=== PATIENT | female | born 1975 | race Caucasian/White ===

== ENCOUNTER → 2020-03-11 10:08 | Outpatient (BNVA) | payer OTHER, SELFPAY | PROVIDERS: PCP Family Medicine; Visit Provider Internal Medicine | DX: M25.522 Pain in left elbow (principal) | CPT/HCPCS: 73080; 99203 ==

== ENCOUNTER 2020-04-04 09:55 | Outpatient (REF) | payer OTHER, SELFPAY ==
[2020-04-04 12:00] LABS: Thyroid Stimulating Hormone 0.75 uIU/mL (0.32-4.0)
[2020-04-05 07:02] LABS: Lutenizing Hormone 16.8 mIU/mL
== END 2020-04-04 09:56 | disposition home or self-care (01) ==
LOC: HO.LAB 09:55
PROVIDERS: PCP Family Medicine; Visit Provider Family Medicine
DX: N95.1 Menopausal and female climacteric states (principal); N89.8 Other specified noninflammatory disorders of vagina
CPT/HCPCS: 36415; 83001; 83002; 84443

== ENCOUNTER 2020-06-02 15:34 | Outpatient (REF) | payer OTHER, SELFPAY ==
--- NOTE | ~2020-06-02 | MM_ITS ---
EXAMINATION: MM SCREENING DIGITAL BREAST TOMOSYNTHESIS, BILATERAL CLINICAL INFORMATION: Screening. Asymptomatic. The lifetime risk of breast cancer based on the Tyrer-Cuzick Model is 8%. COMPARISON: Mammography: 04/25/2019, 04/19/2018 (baseline). TECHNIQUE: Digital breast tomosynthesis is performed in both the craniocaudal and mediolateral oblique views along with computer-aided detection (CAD). Synthesized 2D images are generated from the tomosynthesis. FINDINGS: The breasts are heterogeneously dense, which may obscure small masses (ACR BI-RADS breast composition Category c). There are no significant masses, abnormal calcifications, or other abnormalities. The axilla and skin contours are unremarkable. No significant changes. MM/MM tomosynthesis screening BI IMPRESSION: No mammographic evidence of malignancy. ASSESSMENT: BI-RADS 1: Negative RECOMMENDATION: Routine annual mammography screening. This patient's information was entered into a reminder system with a target due date for their next mammogram.
== END 2020-06-02 15:35 | disposition home or self-care (01) ==
LOC: HO.MAMMO 15:34
PROVIDERS: PCP Family Medicine; Visit Provider Family Medicine
DX: Z12.31 Encounter for screening mammogram for malignant neoplasm of breast (principal)
CPT/HCPCS: 77063; 77067

== ENCOUNTER 2021-01-01 07:19 | Inpatient (IN) | payer OTHER, SELFPAY ==
--- NOTE | ~2021-01-01 | MR_ITS ---
EXAMINATION: MR ABDOMEN WITHOUT CONTRAST CLINICAL INFORMATION: Elevated liver function tests. Abdominal pain. Dilated bile ducts on outside CT scan. COMPARISON: Previous abdominal ultrasound from earlier the same day and MRI of the abdomen October 2016. TECHNIQUE: MR abdomen is performed without gadolinium contrast. MRCP sequences were also performed. FINDINGS: LUNG BASES: The visualized lung bases are unremarkable. LIVER, GALLBLADDER, AND BILIARY TREE: The liver is normal in size, shape and attenuation. There are innumerable small liver cysts. Findings are suggestive of biliary hamartomas or von Meyenburg complex cyst. This is similar to previous exam from October 2016. There is no intrahepatic or extrahepatic biliary duct dilatation. The common bile duct measures 0.7 to 0.8 cm. No filling defect or stricture in the common bile duct is seen. The gallbladder has been removed. PANCREAS: Unremarkable. SPLEEN: Unremarkable. ADRENAL GLANDS: There are bilateral adrenal lesions, left greater than right. These measure 1.3 cm on the right and 1.8 x 2.6 cm on the left. These signal on out of phase sequences suggestive of fatty lesions. These are similar to previous exam and likely represent benign lipid rich adenomas. KIDNEYS AND URETERS: The kidneys are normal in size and shape. No hydronephrosis. No perinephric stranding. GASTROINTESTINAL TRACT: No bowel obstruction. No ascites or fluid collection. ABDOMINAL WALL: No significant hernia is appreciated. LYMPH NODES: No lymphadenopathy. VASCULAR: Unremarkable. OSSEOUS STRUCTURES: Marrow signal normal. 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 Normal caliber intrahepatic and extrahepatic bile ducts. No biliary duct dilatation seen. Stable adrenal adenomas.
--- NOTE | ~2021-01-01 | US_ITS ---
EXAMINATION: US ABDOMEN LIMITED WITH DOPPLER CLINICAL INFORMATION: Acute hepatitis with right upper quadrant pain.. COMPARISON: MRCP dated 01/01/2021 TECHNIQUE: Real-time imaging of the right upper quadrant abdominal viscera. Color Doppler interrogation of the portal veins, hepatic arteries, hepatic veins and IVC, with spectral analysis. FINDINGS: NONVASCULAR PANCREAS: Normal. LIVER: Normal. The liver is normal in size. The liver contour is normal. Parenchymal echogenicity is normal. Multiple simple hepatic cysts present, largest measuring 9 mm within the right lobe, benign. Stable minimal prominence of the left intrahepatic biliary tree, nonspecific status post cholecystectomy. GALLBLADDER: Surgically absent. COMMON BILE DUCT: Normal caliber status post cholecystectomy measuring up to 6.7 mm. RIGHT KIDNEY: Normal. No hydronephrosis. No renal calculi or focal parenchymal lesions. The kidney measures 10.9 cm in maximum dimension. FREE FLUID: None. VASCULAR: Patent portal vein with hepatopedal portal venous flow. Antegrade flow within the main hepatic artery, 90 cm/s. Patent hepatic veins. Patent IVC. No ascites. No portosystemic collaterals are evident. Spleen is normal in size measuring 11.4 cm. US/US duplex arterial venous comp IMPRESSION: * Innumerable hepatic cysts redemonstrated. * Otherwise unremarkable sonographic appearance of the hepatic parenchyma * No significant biliary dilatation. * Unremarkable Doppler sonographic evaluation of the hepatic arterial and venous structures.
--- NOTE | ~2021-01-01 | US_ITS ---
EXAMINATION: US ABDOMEN LIMITED WITH DOPPLER CLINICAL INFORMATION: Acute hepatitis with right upper quadrant pain.. COMPARISON: MRCP dated 01/01/2021 TECHNIQUE: Real-time imaging of the right upper quadrant abdominal viscera. Color Doppler interrogation of the portal veins, hepatic arteries, hepatic veins and IVC, with spectral analysis. FINDINGS: NONVASCULAR PANCREAS: Normal. LIVER: Normal. The liver is normal in size. The liver contour is normal. Parenchymal echogenicity is normal. Multiple simple hepatic cysts present, largest measuring 9 mm within the right lobe, benign. Stable minimal prominence of the left intrahepatic biliary tree, nonspecific status post cholecystectomy. GALLBLADDER: Surgically absent. COMMON BILE DUCT: Normal caliber status post cholecystectomy measuring up to 6.7 mm. RIGHT KIDNEY: Normal. No hydronephrosis. No renal calculi or focal parenchymal lesions. The kidney measures 10.9 cm in maximum dimension. FREE FLUID: None. VASCULAR: Patent portal vein with hepatopedal portal venous flow. Antegrade flow within the main hepatic artery, 90 cm/s. Patent hepatic veins. Patent IVC. No ascites. No portosystemic collaterals are evident. Spleen is normal in size measuring 11.4 cm. US/US abdomen limited IMPRESSION: * Innumerable hepatic cysts redemonstrated. * Otherwise unremarkable sonographic appearance of the hepatic parenchyma * No significant biliary dilatation. * Unremarkable Doppler sonographic evaluation of the hepatic arterial and venous structures.
--- NOTE | ~2021-01-01 | US_ITS ---
EXAMINATION: US ABDOMEN LIMITED CLINICAL INFORMATION: Right upper quadrant pain. COMPARISON: MR abdomen without and with contrast 11/09/2016, ultrasound abdomen 06/10/2014; CT chest with contrast 11/03/2016 TECHNIQUE: Real-time imaging of the right upper quadrant abdominal viscera. FINDINGS: PANCREAS: The pancreatic head and neck and proximal body appear normal in size and echogenicity. There is no pancreatic ductal distention or retroperitoneal effusion. The remainder of the pancreas is obscured by bowel gas and not imaged. LIVER: The liver is normal in size and smooth in contour. There are some scattered punctate cyst as noted on previous imaging. There is no suspicious hepatic parenchymal lesion. There is visualization of some of the central and left hepatic biliary ducts suggesting mild intrahepatic ductal dilatation. GALLBLADDER: Surgically absent. COMMON BILE DUCT: Within normal caliber for postcholecystectomy patient, measuring 10 mm. No visible ductal calculus or sludge. RIGHT KIDNEY: Right kidney measures 9.7 cm. There is normal renal parenchymal thickness and echogenicity. No hydronephrosis or caliectasis or visible calculi. There is a probable cyst with low-level internal echoes interpolar region, measuring 1.8 x 1.4 x 1.5 cm. The lesion is circumscribed and shows no solid component or color flow. There is no definite increased through-transmission of sound. No renal cyst noted on prior imaging. FREE FLUID: None. US/US abdomen limited IMPRESSION: 1. Prior cholecystectomy. Mild intrahepatic ductal prominence. Common duct within normal. No common duct calculus. Recommend correlation with laboratories. 2. Probable complicated cyst interpolar right kidney under 2 cm with low-level internal echoes, Bosniak 2F. Recommend follow-up ultrasound in 6 months.
[2021-01-01 07:38] VITALS: BP 119/57; PULSE 54; RESP 18; TEMP 36.4; O2SAT 98; BMI 24.7
--- NOTE | 2021-01-01 08:05 | ED.NAVMDI ---
HPI - Nausea/Vomiting/Diarrhea General Chief complaint: Nausea/Vomiting/Diarrhea Stated complaint: nausea, abd pain Time Seen by Provider: 01/01/21 07:43 Source: patient Mode of arrival: ambulatory Limitations: no limitations History of Present Illness HPI Narrative: athol - CT scan adrenal nodules, enteritis no SBO, mild duct dilation, normal appendix - given dilaudid, toradol, fluids and DC to GI follow up sees Dr. Nix he referred her here to our ED for repeat labs and recheck LFTs - her initial were in 200s possible MRCP MD elicited complaint: nausea, vomiting and abdominal pain Onset (ago): hour(s) (started at 230am) Associated nausea: Yes Associated abdominal pain: Yes Location of pain: epigastric Radiation: diffuse Pain consistency: constant Severity: severe Exacerbating factors: movement Relieving factors: none Associated symptoms: loss of appetite, malaise and nausea/vomiting Treatment prior to arrival: analgesics Related Data Home Medications Medication Instructions Recorded Confirmed dicyclomine 10 mg capsule 10 mg PO QID PRN 01/01/21 01/01/21 ibuprofen 200 mg tablet 200 mg PO Q6H PRN 01/01/21 01/01/21 Allergies Allergy/AdvReac Type Severity Reaction Status Date / Time latex [Latex] Allergy Unknown SWELLING, Unverified 10/31/19 17:25 SHORT OF BREATH medroxyprogesterone Allergy Unknown Unknown Verified 01/01/21 07:38 [Depo-Provera] Review of Systems Review of Systems: Constitutional : No Weight loss, No Fever, pos Chills ENT/Mouth : No sore throat, No Rhinorrhea Eyes: No Swelling, No Redness Cardiovascular : No Chest Pain, No SOB, NoEdema Respiratory : No Cough, No Sputum, No Wheezing Gastrointestinal : Positive Nausea, Positive Vomiting, no Diarrhea, positive abdominal Pain, No Hematochezia, No Melena Genitourinary : No Dysuria, No Urinary Frequency, No Hematuria, No Urgency Musculoskeletal : No joint pain, No Myalgias, No Joint Swelling Skin : No Skin Lesions, No rash Neuro : pos Weakness, No Numbness, No Dizziness, No Headache Psych : No Anxiety/Panic, No Depression Heme/Lymph: No Bruising, No Lymphadenopathy Endocrine : No Polyuria, No Polydipsia All other systems reviewed and are negative. Gastrointestinal: Gastrointestinal: Reports nausea PMFSH Past Medical History Medical History IBS (irritable bowel syndrome) Surgical History History of Thad fundoplication Hx of cholecystectomy Social History Social History Alcohol intake: unknown Patient Tobacco Use Status: Never used Tobacco Use of substances other than those prescribed or required for medical reasons: No Advance Directives: No Advance Directives Information Provided: Yes Physical Exam Vital Signs: Vital Signs: Last Vital Signs Temp 97.6 F 01/01/21 07:38 Pulse 58 01/01/21 12:45 Resp 14 01/01/21 12:45 BP 107/59 L 01/01/21 12:45 Pulse Ox 90 L 01/01/21 12:45 Body Mass Index 24.7 Appearance: Alert. Oriented X3. dry heaving Moderate acute distress. Eyes: Pupils equal, round and reactive to light. ENT: Pharynx very dry MM Neck: Normal inspection. Neck supple. CVS: Normal heart rate and rhythm. Pulses normal. Respiratory: No respiratory distress. Breath sounds normal. Abdomen: Soft but diffuse ttp Skin: Skin warm and dry. Normal skin color. Normal skin turgor. Extremities: No lower extremity edema. No calf ttp Neuro: Oriented X 3. No motor deficit. No sensory deficit. Course Course Course Narrative: Dr. Nix aware - plan on admission, MRCP ordered, wants coags LFTs increased MDM - Nausea/Vomiting/Diarrhea MDM Narrative Medical decision making narrative: 45 yo female with multiple abdominal surgeries comes in with c/o outpatient workup at other facility including CT scan nonspecific ductal dilation, enteritis, adrenal nodules - her LFTs were also elevated in 200s - at this time her GI doctor is here will repeat labs, obtain US of liver - IVF x 2L, pain control - IV morphine dispo per results and workup. Will discuss with Dr. Nix Lab Data Result diagrams: 01/01/21 08:14 01/01/21 08:14 Labs: Lab Results 01/01/21 01/01/21 01/01/21 Range/Units 08:11 08:11 08:14 WBC 12.2 H (4.8-10.8) X10*3/uL RBC 4.31 (4.20-5.50) X10*6/uL Hgb 13.5 (12.0-16.0) g/dl Hct 38.9 (37.0-47.0) % MCV 90.3 (80.0-98.0) fL MCH 31.3 (27.0-33.0) pg MCHC 34.7 (31.0-35.0) g/dl RDW 12.5 (11.0-16.0) % Plt Count 309 (160-400) X10*3/uL MPV 10.2 (9.4-12.3) fL Immature Gran % (Auto) 0.4 (0.0-0.4) % Neut % (Auto) 88.0 H (45-73) % Lymph % (Auto) 7.1 L (20-40) % [place] % (Auto) 4.1 (2-11) % Eos % (Auto) 0.1 (0-4) % Baso % (Auto) 0.3 (0-2) % Lymph # (Auto) 0.9 L (1.2-4.9) X10*3/uL [place] # (Auto) 0.5 (0.1-1.2) X10*3/uL Eos # (Auto) 0.0 (0.0-0.4) X10*3/uL Baso # (Auto) 0.0 (0.0-0.2) X10*3/uL Abs Immat Gran (auto) 0.05 H (0.00-0.03) X10*3/uL Absolute Neuts (auto) 10.7 H (2.0-8.3) x10*3/uL Absolute Nucleated RBC 0.000 (0.0-0.012) X10*3/uL Nucleated RBC % (auto) 0.0 (0.0-0.2) /100WBC Sodium (135-145) mmol/L Potassium (3.3-5.1) mmol/L Chloride (96-108) mmol/L Carbon Dioxide (22-29) mmol/L Anion Gap (12-20) BUN (9-16) mg/dL Creatinine (0.5-1.4) mg/dL Estim Creat Clear Calc Estimated GFR Random Glucose (60-115) mg/dL Calcium (8.4-10.2) mg/dL Magnesium (1.6-2.6) mg/dL Total Bilirubin (0.0-1.0) mg/dL Direct Bilirubin (0.0-0.5) mg/dL AST (5-31) U/L ALT (0-31) U/L Alkaline Phosphatase (39-117) U/L Total Protein (6.5-8.0) g/dL Albumin (3.5-5.0) g/dL Lipase (8-78) U/L Urine Color YELLOW Urine Appearance CLEAR Urine pH 8.5 H (5.0-8.0) Ur Specific [place] <= 1.005 (1.005-1.025) Urine Protein 1+ H (NEG-TRACE) MG/DL Urine Glucose (UA) NEG (NEG) MG/DL Urine Ketones 5 (NEG) MG/DL Urine Blood NEG (NEG) Urine Nitrite NEG (NEG) Ur Leukocyte Esterase NEG (NEG) Urine RBC 0 (0) /HPF Urine WBC 0 (0-4) /HPF Ur Squamous Epith Cells 1+ /LPF Urine Bacteria TRACE /LPF Urine Opiates Screen POSITIVE H (Not Detect) Urine Fentanyl Screen Not Detected (Not Detect) Acetaminophen (<30) mcg/mL Ur Barbiturates Screen Not Detected (Not Detect) Ur Phencyclidine Scrn Not Detected (Not Detect) Ur Amphetamines Screen Not Detected (Not Detect) U Benzodiazepines Scrn Not Detected (Not Detect) Urine Cocaine Screen Not Detected (Not Detect) U Marijuana (THC) Screen Not Detected (Not Detect) COVID-19 (LAUREEN) (Negative) COVID-19 Clin Com Hepatitis A IgM Ab (Nonreactive) Hep Bs Antigen (Negative) Hep Bs Antibody (Nonreactive) Hep B Core Total Ab (Nonreactive) Hepatitis C Ab (EIA) (Nonreactive) 01/01/21 01/01/21 01/01/21 Range/Units 08:14 08:14 08:16 WBC (4.8-10.8) X10*3/uL RBC (4.20-5.50) X10*6/uL Hgb (12.0-16.0) g/dl Hct (37.0-47.0) % MCV (80.0-98.0) fL MCH (27.0-33.0) pg MCHC (31.0-35.0) g/dl RDW (11.0-16.0) % Plt Count (160-400) X10*3/uL MPV (9.4-12.3) fL Immature Gran % (Auto) (0.0-0.4) % Neut % (Auto) (45-73) % Lymph % (Auto) (20-40) % [place] % (Auto) (2-11) % Eos % (Auto) (0-4) % Baso % (Auto) (0-2) % Lymph # (Auto) (1.2-4.9) X10*3/uL [place] # (Auto) (0.1-1.2) X10*3/uL Eos # (Auto) (0.0-0.4) X10*3/uL Baso # (Auto) (0.0-0.2) X10*3/uL Abs Immat Gran (auto) (0.00-0.03) X10*3/uL Absolute Neuts (auto) (2.0-8.3) x10*3/uL Absolute Nucleated RBC (0.0-0.012) X10*3/uL Nucleated RBC % (auto) (0.0-0.2) /100WBC Sodium 134 L (135-145) mmol/L Potassium 3.1 L (3.3-5.1) mmol/L Chloride 105 (96-108) mmol/L Carbon Dioxide 20 L (22-29) mmol/L Anion Gap 12 (12-20) BUN 8 L (9-16) mg/dL Creatinine 0.75 (0.5-1.4) mg/dL Estim Creat Clear Calc 86.8 Estimated GFR > 60 Random Glucose 148 H (60-115) mg/dL Calcium 8.9 (8.4-10.2) mg/dL Magnesium 1.8 (1.6-2.6) mg/dL Total Bilirubin 1.6 H (0.0-1.0) mg/dL Direct Bilirubin 0.7 H (0.0-0.5) mg/dL AST 1061 H (5-31) U/L ALT 525 H (0-31) U/L Alkaline Phosphatase 67 (39-117) U/L Total Protein 6.6 (6.5-8.0) g/dL Albumin 4.2 (3.5-5.0) g/dL Lipase 23 (8-78) U/L Urine Color Urine Appearance Urine pH (5.0-8.0) Ur Specific [place] (1.005-1.025) Urine Protein (NEG-TRACE) MG/DL Urine Glucose (UA) (NEG) MG/DL Urine Ketones (NEG) MG/DL Urine Blood (NEG) Urine Nitrite (NEG) Ur Leukocyte Esterase (NEG) Urine RBC (0) /HPF Urine WBC (0-4) /HPF Ur Squamous Epith Cells /LPF Urine Bacteria /LPF Urine Opiates Screen (Not Detect) Urine Fentanyl Screen (Not Detect) Acetaminophen 7 (<30) mcg/mL Ur Barbiturates Screen (Not Detect) Ur Phencyclidine Scrn (Not Detect) Ur Amphetamines Screen (Not Detect) U Benzodiazepines Scrn (Not Detect) Urine Cocaine Screen (Not Detect) U Marijuana (THC) Screen (Not Detect) COVID-19 (LAUREEN) Negative (Negative) COVID-19 Clin Com See Note Hepatitis A IgM Ab Nonreactive (Nonreactive) Hep Bs Antigen Negative (Negative) Hep Bs Antibody REACTIVE (Nonreactive) Hep B Core Total Ab Nonreactive (Nonreactive) Hepatitis C Ab (EIA) Nonreactive (Nonreactive) Critical Care Time Critical Care Time Critical Care Time: Yes Total Critical Care Time: 45 Attestation: medical consult, review of records, 2L of IVF ordered I attest to this time spent taking care of the patient Discharge Plan Discharge Clinical Impression: Elevated LFTs Vomiting Qualifiers: Vomiting type: unspecified Vomiting Intractability: intractable Nausea presence: with nausea Qualified Code(s): R11.2 - Nausea with vomiting, unspecified Abdominal pain Qualifiers: Abdominal location: epigastric Qualified Code(s): R10.13 - Epigastric pain Patient Disposition: Admitted As Inpatient
[2021-01-01 08:25] LABS: MANUAL DIFF FLAG NO
[2021-01-01 08:28] LABS: Basophils Percent Auto 0.3 % (0-2); Eosinophils Percent Auto 0.1 % (0-4); Hematocrit 38.9 % (37.0-47.0); Hemoglobin 13.5 g/dl (12.0-16.0); Imm Gran Abs Auto 0.05 X10*3/uL (0.00-0.03); Imm Gran Pct Auto 0.4 % (0.0-0.4); Lymphocytes Absolute Auto 0.9 X10*3/uL (1.2-4.9); Lymphocytes Percent Auto 7.1 % (20-40); Mean Corpuscular HGB Conc 34.7 g/dl (31.0-35.0); Mean Corpuscular Hemoglobin 31.3 pg (27.0-33.0); Mean Corpuscular Volume 90.3 fL (80.0-98.0); Mean Platelet Volume 10.2 fL (9.4-12.3); Monocytes Absolute Auto 0.5 X10*3/uL (0.1-1.2); Monocytes Percent Auto 4.1 % (2-11); Neutrophils Absolute Auto 10.7 x10*3/uL (2.0-8.3); Platelet Count 309 X10*3/uL (160-400); Red Blood Count 4.31 X10*6/uL (4.20-5.50); Red Cell Distribution Width 12.5 % (11.0-16.0); White Blood Count 12.2 X10*3/uL (4.8-10.8)
[2021-01-01] MEDS: 0.9 % Sodium Chloride 1,000 ML 999 ML IV ×2 (08:28→08:33)
[2021-01-01] MEDS: diphenhydrAMINE HCL 50 MG/ML VIAL 25 MG IVPUSH (08:28)
[2021-01-01] MEDS: Prochlorperazine Edisylate 10 MG/2 ML VIAL IVPUSH (08:29)
[2021-01-01 08:30] LABS: Appearance Urine CLEAR; Color Urine YELLOW; Glucose Urine UA NEG (NEG); Leukocyte Esterase Urine NEG (NEG); Nitrite Urine NEG (NEG); PH 8.5 (5.0-8.0); Specific Gravity - Urine <= 1.005 (1.005-1.025); UACC Culture Trigger NO; Urine Blood NEG (NEG); Urine Ketones 5 MG/DL (NEG)
[2021-01-01] MEDS: Morphine Sulfate 4 MG/ML CARTRIDGE IVPUSH (08:32)
[2021-01-01 08:33] LABS: Urine Protein 1+ MG/DL (NEG-TRACE)
[2021-01-01 08:43] LABS: COVID-19 Test Negative (Negative); IDNOW Serial# 08D9AD1C
[2021-01-01 08:44] LABS: Alanine Aminotransferase 525 U/L (0-31); Albumin Level 4.2 g/dL (3.5-5.0); Alkaline Phosphatase 67 U/L (39-117); Anion Gap 12 (12-20); Aspartate Amino Transferase 1061 U/L (5-31); Bilirubin Direct 0.7 mg/dL (0.0-0.5); Bilirubin Total 1.6 mg/dL (0.0-1.0); Blood Urea Nitrogen 8 mg/dL (9-16); Calcium 8.9 mg/dL (8.4-10.2); Carbon Dioxide 20 mmol/L (22-29); Chloride 105 mmol/L (96-108); Creatinine Clr Calc Pharmacy 86.8; Estimated Glomerular Filt Rate > 60; Glucose Random 148 mg/dL (60-115); Lipase 23 U/L (8-78); Magnesium 1.8 mg/dL (1.6-2.6); Potassium 3.1 mmol/L (3.3-5.1); Sodium 134 mmol/L (135-145); Total Protein 6.6 g/dL (6.5-8.0)
[2021-01-01 08:44] LABS: Amphetamine Screen Urine Not Detected (Not Detect); Barbiturates, Urine Not Detected (Not Detect); Benzodiazepines Screen Urine Not Detected (Not Detect); Cannabinoid Screen Urine Not Detected (Not Detect); Cocaine Screen Urine Not Detected (Not Detect); Fentanyl, urine Not Detected (Not Detect); Opiate Screen Urine POSITIVE (Not Detect); Phencyclidine Screen Urine Not Detected (Not Detect)
[2021-01-01 08:45] LABS: Bacteria Urine TRACE /LPF; RBC Urine 0 /HPF (0); Squamous Epithelial Cell Urine 1+ /LPF; WBC Urine 0 /HPF (0-4)
[2021-01-01 09:11] VITALS: BP 102/65; PULSE 65; RESP 17; O2SAT 98
[2021-01-01 09:52] LABS: HBS Num1 46.31 mIU/mL (0-7.99); HBc Num1 0.32 S/CO (0.00-0.79); Hepatitis B Core Antibody Nonreactive (Nonreactive); ~Hepatitis B Surface Antibody REACTIVE (Nonreactive)
[2021-01-01 09:56] LABS: HBsAGNum1 0.14 S/CO (0.00-0.99); Hepatitis B Surface Antigen Negative (Negative); ~HepC Num1 0.06 S/CO (0.00-0.79); ~Hepatitis A Antibody IgM Nonreactive (Nonreactive); ~Hepatitis C Antibody Nonreactive (Nonreactive)
--- NOTE | 2021-01-01 10:33 | PHA.MEDREC ---
Pharmacy Consult ? Medication Reconciliation Pharmacy has completed the medication reconciliation. There are no remarkable issues for provider's attention. Glenis Mcintosh, OzzyD
[2021-01-01] MEDS: LORazepam 2 MG/ML VIAL 1 MG IVPUSH (10:49)
[2021-01-01 11:58] LABS: Acetaminophen LAB 7 mcg/mL (<30)
--- NOTE | 2021-01-01 12:35 | PM.IMHP ---
History of Present Illness Date of Service: 01/01/21 Attending physician on admission: Mairana Lyn Chief Complaint: abdominal pain, nausea and vomiting This is a 45 year old female who presents to the ED With abdominal pain. Her history was somewhat limited as she received ativan prior to MRCP and was sleepy. History was obtained from her at the bedside. This morning around 230 she woke right upper quadrant pain nausea. She went to the emergency department a her workup revealed elevated LFTs, imaging showed nonspecific ductal dilatation and she was discharged home to follow with outpatient GI. 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 AST was elevated at 1061 and ALT 525. Abdominal ultrasound showed mild intrahepatic ductal prominence. Common duct normal. No common duct calculus. She underwent MRCP which is pending at this time. Hepatitis screening was done and unremarkable. She denies the use of tylenol, she takes only dycyclomine prn at baseline. In the emergency department she received antiemetics as well as analgesics and her pain has improved somewhat at this time. Review of Systems Review of Systems: Yes all other systems are reviewed and are negative Constitutional: Constitutional: Denies chills and Denies fever(s) Cardiovascular: Cardiovascular: Denies chest pain Respiratory: Respiratory: Denies cough Gastrointestinal: Gastrointestinal: Reports abdominal pain, Reports nausea and Reports vomiting [facility] Medical History IBS (irritable bowel syndrome) Functional capacity: independent ambulation Pertinent family history: no early CAD Surgical History History of Thad fundoplication Hx of cholecystectomy Social History Patient Tobacco Use Status: Never used Tobacco Advance Directives: No Advance Directives Information Provided: Yes Meds Allergies Allergy/AdvReac Type Severity Reaction Status Date / Time latex [Latex] Allergy Unknown SWELLING, Unverified 10/31/19 17:25 SHORT OF BREATH medroxyprogesterone Allergy Unknown Unknown Verified 01/01/21 07:38 [Depo-Provera] Active Medications: Current Medications Enoxaparin Sodium (Enoxaparin Sodium 40 Mg/0.4 Ml Syringe) 40 mg SUBCUT Q24H [facility] Lactated Ringer's (Lr) 1,000 mls @ 100 mls/hr IVCONT .Q10H [facility] Pharmacy Consult (Consult Rx Perform Med Rec) 1 each MISCELLANE ONCE PRN PRN Reason: Consult order Sodium Chloride (0.9 % Sodium Chloride Flush 3 Ml Syringe) 3 ml IVFLUSH QSHIFT [facility] Home Medications Medication Instructions Recorded Confirmed Last Taken Type dicyclomine 10 mg capsule 10 mg PO QID PRN 01/01/21 01/01/21 Unknown History ibuprofen 200 mg tablet 200 mg PO Q6H PRN 01/01/21 01/01/21 Unknown History Physical Exam Vital Signs and Narrative: Vital Signs: Last Vital Signs Temp 97.6 F 01/01/21 07:38 Pulse 65 01/01/21 09:11 Resp 17 01/01/21 09:11 BP 102/65 01/01/21 09:11 Pulse Ox 98 01/01/21 09:11 Body Mass Index 24.7 Const: Other: sleepy General: comfortable and no acute distress Nutritional Appearance: well nourished HENMT: Head: Yes normocephalic and Yes atraumatic Eyes: Sclerae: sclerae normal Resp: Effort & Inspection: normal respiratory effort and no respiratory distress Cardio: Rate: regular rate Rhythm: regular rhythm GI: Other: mild tenderness in right upper quadrant Inspection: No distended Palpation (GI): Soft to palpation Extrem: Other: no leg edema Results Labs CBC and Chem 7: 01/01/21 08:14 01/01/21 08:14 Labs: Laboratory Results - last 24 hr 01/01/21 01/01/21 01/01/21 08:11 08:11 08:14 MCV 90.3 MCH 31.3 MCHC 34.7 RDW 12.5 Plt Count 309 MPV 10.2 Immature Gran % (Auto) 0.4 Neut % (Auto) 88.0 H Lymph % (Auto) 7.1 L [place] % (Auto) 4.1 Eos % (Auto) 0.1 Baso % (Auto) 0.3 Lymph # (Auto) 0.9 L [place] # (Auto) 0.5 Eos # (Auto) 0.0 Baso # (Auto) 0.0 Abs Immat Gran (auto) 0.05 H Absolute Neuts (auto) 10.7 H Absolute Nucleated RBC 0.000 Nucleated RBC % (auto) 0.0 Anion Gap Estim Creat Clear Calc Estimated GFR Random Glucose Calcium Magnesium Total Bilirubin Direct Bilirubin AST ALT Alkaline Phosphatase Total Protein Albumin Lipase Urine Color YELLOW Urine Appearance CLEAR Urine pH 8.5 H Ur Specific [place] <= 1.005 Urine Protein 1+ H Urine Glucose (UA) NEG Urine Ketones 5 Urine Blood NEG Urine Nitrite NEG Ur Leukocyte Esterase NEG Urine RBC 0 Urine WBC 0 Ur Squamous Epith Cells 1+ Urine Bacteria TRACE Urine Opiates Screen POSITIVE H Urine Fentanyl Screen Not Detected Acetaminophen Ur Barbiturates Screen Not Detected Ur Phencyclidine Scrn Not Detected Ur Amphetamines Screen Not Detected U Benzodiazepines Scrn Not Detected Urine Cocaine Screen Not Detected U Marijuana (THC) Screen Not Detected COVID-19 (LAUREEN) COVID-19 Clin Com Hepatitis A IgM Ab Hep Bs Antigen Hep Bs Antibody Hep B Core Total Ab Hepatitis C Ab (EIA) 01/01/21 01/01/21 01/01/21 08:14 08:14 08:16 MCV MCH MCHC RDW Plt Count MPV Immature Gran % (Auto) Neut % (Auto) Lymph % (Auto) [place] % (Auto) Eos % (Auto) Baso % (Auto) Lymph # (Auto) [place] # (Auto) Eos # (Auto) Baso # (Auto) Abs Immat Gran (auto) Absolute Neuts (auto) Absolute Nucleated RBC Nucleated RBC % (auto) Anion Gap 12 Estim Creat Clear Calc 86.8 Estimated GFR > 60 Random Glucose 148 H Calcium 8.9 Magnesium 1.8 Total Bilirubin 1.6 H Direct Bilirubin 0.7 H AST 1061 H ALT 525 H Alkaline Phosphatase 67 Total Protein 6.6 Albumin 4.2 Lipase 23 Urine Color Urine Appearance Urine pH Ur Specific [place] Urine Protein Urine Glucose (UA) Urine Ketones Urine Blood Urine Nitrite Ur Leukocyte Esterase Urine RBC Urine WBC Ur Squamous Epith Cells Urine Bacteria Urine Opiates Screen Urine Fentanyl Screen Acetaminophen 7 Ur Barbiturates Screen Ur Phencyclidine Scrn Ur Amphetamines Screen U Benzodiazepines Scrn Urine Cocaine Screen U Marijuana (THC) Screen COVID-19 (LAUREEN) Negative COVID-19 Clin Com See Note Hepatitis A IgM Ab Nonreactive Hep Bs Antigen Negative Hep Bs Antibody REACTIVE Hep B Core Total Ab Nonreactive Hepatitis C Ab (EIA) Nonreactive Imaging Radiologist's Impressions: Impressions Abdomen Ultrasound 01/01/21 07:43 IMPRESSION: 1. Prior cholecystectomy. Mild intrahepatic ductal prominence. Common duct within normal. No common duct calculus. Recommend correlation with laboratories. 2. Probable complicated cyst interpolar right kidney under 2 cm with low-level internal echoes, Bosniak 2F. Recommend follow-up ultrasound in 6 months. Assessment and Plan (1) Elevated LFTs: Status: Acute (2) Abdominal pain: Qualifiers: Abdominal location: epigastric Qualified Code(s): R10.13 - Epigastric pain Status: Acute This is a 45-year-old female with history of irritable bowel syndrome who presents to the emergency department with right upper quadrant abdominal pain and vomiting found to have elevated LFTs abdominal pain/elevated LFTs abdominal ultrasound showing mild intrahepatic ductal prominence hepatitis screen negative h/o CCY ?passed stone - MRCP pending - trend LFTs - supportive care - GI consult dvt ppx - lovenox code status - full code attending: dr lyn Quality Stroke Does the patient have a stroke diagnosis?: No VTE Prior VTE?: No VTE Risk Level:: Medical - moderate - high VTE Device Contraindication: N/A - Device Ordered VTE Drug Contraindication: N/A - Med Ordered
[2021-01-01 12:45] VITALS: BP 107/59; PULSE 58; RESP 14; O2SAT 90
[2021-01-01] MEDS: Lactated Ringers 1,000 ML 100 ML IVCONT (13:58)
[2021-01-01] MEDS: Enoxaparin Sodium 40 MG/0.4 ML SYRINGE SUBCUT (13:58)
[2021-01-01 14:13] LABS: Prothrombin Time 11.5 SEC (9.9-13.0)
[2021-01-01 14:25] LABS: Alanine Aminotransferase 887 U/L (0-31); Albumin Level 3.6 g/dL (3.5-5.0); Alkaline Phosphatase 67 U/L (39-117); Aspartate Amino Transferase 1269 U/L (5-31); Bilirubin Direct 0.6 mg/dL (0.0-0.5); Bilirubin Total 1.5 mg/dL (0.0-1.0); Total Protein 5.7 g/dL (6.5-8.0)
--- NOTE | 2021-01-01 15:12 | MHC.CM.PN ---
CM met with admitted patient with bed assignment pending. Pt groggy S/P MRCP. Opens eyes to voice and able to answer short questions. No IMM necessary. No HCP on file. Pt declined at this time. Please re-address when more awake. Lives with . 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 Uses no DME or services. Fully vaccinated with Moderna. D/C plan is home without services. Transportation provided from . CM to follow for d/c needs.
--- NOTE | 2021-01-01 18:30 | PM.EVENT ---
Event Note Date of Service: 01/01/21 Event Note: GI Consult-Full note dictated Imp: 45 yo female [employer] presenting with acute RUQ pain that awoke her from sleep at 2AM today with associated nausea and dry heaves. She has had a progressive rise of liver transaminases, although with just minimal elevation of the TBili and a persistently normal Alk phos. Her imaging studies, including an outside CT and an U/S and MRCP here, don't show any definitive biliary abnormalitis. Her PT/INR is WNL and Hepatitis serologies are negative. She is s/p a CCY approx 20 yrs ago. She had a similar episode of pain in 2009 with a normal U/S but slightly elevated LFT's. She was well yesterday and was fine when she went to sleep. She denies any new Rx's or OTC meds, ill contacts, travel, EtOH,nor drug use. She does not use any sig. amounts of Tylenol nor NSAIDs. Diff dx: Viral hepatitis such as acute HCV or Donley. Sphincter of Oddi dysfunction/Biliary dyskinesia, although with a normal Alk phos and normal CBD on imaging that would make that less likely. R/O portal vein thrombosis/Budd Chiari. Rec: I would hold off on an ERCP and sphincterotomy at this time given a normal MRCP and her clinical history. However, depending on her clinical course we may need to reassess that. Doppler U/S of abdomen to R/O portal vein thrombosis or Budd Chiari syndrome and remeasurement of her CBD tomorrow. Follow up labs, along with a complete liver workup , including autoimmune studies. R/O acute Donley, and check a HCV viral load to R/O acute HCV infection given the negative HCV antibody. Follow PT/INR. If her labs continue to worsen re: hepatitis and liver dysfunction she would need consideration of a liver biopsy and transfer to a tertiary center for transplant evaluation. D/W patient in detail and she is comfortable with this plan. Dr. Do is covering over the weekend if problems or questions arise. Thanks
--- NOTE | 2021-01-01 18:49 | PM.EVENT ---
Event Note Date of Service: 01/01/21 Event Note: Patient seen and examined patient has some up right upper quadrant pain and nausea last night-found to have elevated LFTs in the ED. Patient history is limited since she received Ativan for MRCP. 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 Normal caliber intrahepatic and extrahepatic bile ducts. No biliary duct dilatation seen. Stable adrenal adenomas. Hepatitis screening ABC negative except HbS Ab positive Physical exam: Appearance: Alert.? Oriented X3.? but sleepy Eyes: Pupils equal, round and reactive to light.? Sclera nonicteric.? ENT: Pharynx normal.? Moist mucous membranes. cvs: rrr, [id number] , no murmur res: clear to auscultation ,no rhonchii or wheezing abd: no rebound or guarding , mild ruq discomfort, bs present. ext pulses present , no cyanosis ,Gait well balanced well coordinated. neuro: moving all ext, seems sleepy but answers questions Assessment and plan: Elevated liver function test, AST>ALT , alk phos, PT INR normal hepatitis profile -hepatitis A,B,C sceen as above Patient denies using any medications or any IV drugs. Or any alcohol use Gentle hydration GI evaluation-differential could be passed stone? Versus liver disease
--- NOTE | 2021-01-01 22:15 | PC.NURSE ---
easily awoken to verbal stimuli, given clear liquid diet, tolerating po w/o issue. awaiting inpt bed assignment. offers no complaints at this time.
[2021-01-01] MEDS: 0.9 % Sodium Chloride Flush 3 ML SYRINGE IVFLUSH (23:16)
[2021-01-01] MEDS: Potassium Chloride Packet 20 MEQ PACKET PO (23:17)
--- NOTE | 2021-01-01 23:19 | PC.NURSE ---
REPORT TAKEN FROM YANNICK ARRINGTON, FIRST CONTACT WITH PT. SITTING UP IN BED WATCHING TV. SKIN PWD RESPIRATIONS EVEN UNLABORED. LR RUNNING AT 100ML/HR INFUSING WITHOUT DIFFICULTY. TOLERATING CLEAR LIQUID DIET. MEDICATED PER MAR WITH POTASSIUM REPLACEMENT. CONTINUES TO WAIT BED ASSIGNMENT FOR ADMISSION. AWARE OF PLAN OF CARE.
[2021-01-02] MEDS: Lactated Ringers 1,000 ML 100 ML IVCONT ×2 (00:08→09:44)
[2021-01-02 00:10] VITALS: BP 94/64; PULSE 57; RESP 16; TEMP 37.1; O2SAT 97
[2021-01-02 02:39] VITALS: BP 103/63; PULSE 53; RESP 18; TEMP 36.6; O2SAT 98
[2021-01-02 04:00] VITALS: BP 97/58; PULSE 56; RESP 18; TEMP 36.4; O2SAT 97
--- NOTE | 2021-01-02 05:20 | CONS_ITS ---
DATE OF SERVICE: 01/01/2021 REASON FOR CONSULTATION: Abdominal pain and elevated LFTs. HISTORY OF PRESENT ILLNESS: The patient is a 45-year-old female who was in her usual state of health up until being awakened at 2 a.m. this morning with fairly severe right upper quadrant pain. This was associated with dry heaves but no vomiting. Due to persistence of the pain, she went to her local ER. She denies any associated signs of jaundice, fevers, chills, hematemesis, nor coffee-grounds emesis. She did not have any diarrhea, melena, nor hematochezia. The pain did not radiate other than in the right upper quadrant area. Prior to this morning, she was feeling well. She went to sleep feeling well. She has not had any travel, ill contacts, nor has she been using any new medication, either prescription nor [id number]. In her local ER, she underwent a CT scan that did not reveal any definitive evidence of biliary disease, liver disease, nor any other significant intraabdominal pathology. Her laboratories in the ER there revealed an AST in the mid 200s and an ALT of approximately 80. 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 Since her arrival here in the ER, she has been feeling somewhat better. However, her liver enzymes have climbed steadily to an AST of 1269 and ALT of 887. Her alkaline phosphatase has remained normal, and the total bilirubin has remained just minimally elevated at 1.5. Prior to early this morning, she reports that she had been feeling well with good energy and good appetite. She denies any pruritus nor fatigue. 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 She has had a cholecystectomy many years ago. She did have a similar episode of pain in approximately 2009 with some slight elevation of liver enzymes, but at that time, imaging studies were negative for any sign of biliary disease. She denies any significant alcohol use. She denies any known family history of liver disease. She does not use any significant amounts of Tylenol nor NSAIDs. MEDICATION: At home, dicyclomine. PAST MEDICAL HISTORY: Gastroesophageal reflux with esophagitis and hiatal hernia. She underwent a hiatal hernia surgery repair in [address] Abad. Normal colonoscopy including biopsies in December 2018. Irritable bowel syndrome. Compression fracture of T11 after a fall in 2013. She denies any history of UT, diabetes, stroke, lung disease, nor kidney disease. PAST SURGICAL HISTORY: Surgeries have included cholecystectomy, tubal ligation, D and C, uterine ablation, hysterectomy and bladder suspension, hiatal hernia surgery, and scalp cyst. FAMILY HISTORY: Negative for GI malignancy nor liver disease. 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 She is . She is a former smoker. She does not use any significant amounts of alcohol. REVIEW OF SYSTEMS: CONSTITUTIONAL: Up until this morning, she had been feeling well with good energy and good appetite. SKIN: No rash. No pruritus. CARDIAC: No chest pain. PULMONARY: No cough. No hemoptysis. GI: As above. URINARY: No dysuria. No hematuria. NEUROLOGIC: No headache or seizures. PHYSICAL EXAMINATION: GENERAL: The patient is a pleasant, alert, tired-appearing female. SKIN/HEENT: Nonjaundiced. Anicteric sclerae. No spider angiomata. NECK: Supple. CHEST: Clear. CARDIAC: Normal S1, S2. ABDOMEN: Soft. Normal bowel sounds with only minimal tenderness in the right upper quadrant but without palpable mass. No organomegaly. EXTREMITIES: Without edema. NEUROLOGIC: She is alert and oriented otherwise.No asterixis. LABORATORY DATA: As above. She did have a MRCP earlier today that I did review. Both my review and the radiologist's review are that of a normal MRCP without any sign of biliary disease such as biliary dilatation, common duct stones, nor stricture. The pancreas and spleen appeared unremarkable. Vascular described as unremarkable as well. She did have abdominal ultrasound today, which also described a common bile duct of 10 mm, which was felt to be normal post-cholecystectomy and no sign of any common duct stones. There did appear to be some mild intrahepatic ductal dilatation on the ultrasound. There is no splenomegaly nor ascites. White blood cell count 12.2, hemoglobin 13.5, platelets 309,000. PT 11.5 with INR 1.0. Sodium 134, potassium 3.1, BUN 12, creatinine 0.8, total bilirubin 1.5, AST 1269, ALT 887, alkaline phosphatase 67, albumin 3.6, lipase 23. Toxicology urine screen was only positive for opiates as she had received some pain medication at her local ER. Her acetaminophen level was 7 as she also did receive acetaminophen in her local ER. Hepatitis A IgM is negative. Hepatitis B antigen is negative. Hepatitis C antibody is negative, and hepatitis B surface antibody is positive. COVID is negative. IMPRESSION: At this point, the exact etiology of her presentation is not entirely clear. The abdominal pain in the right upper quadrant certainly could speak for biliary disease, but her normal alkaline phosphatase and minimally elevated total bilirubin, with very high liver transaminases, would speak against a primary biliary disease. Her imaging studies would also seemingly point against the biliary process as well, particularly with a normal-appearing magnetic resonance cholangiopancreatography. A possibility would be that of a sphincter of Oddi spasm, but again there is no evidence of any biliary dilatation on the ultrasound or magnetic resonance cholangiopancreatography, and typically those patients do have elevated alkaline phosphatase. Another possibility would be that of an acute viral hepatitis such as acute hepatitis C or mononucleosis. Portal vein thrombosis or Budd-Chiari syndrome would be a possibility as well. At this point, I would hold off on an endoscopic retrograde cholangiopancreatography and sphincterotomy given the normal magnetic resonance cholangiopancreatography and the clinical history. Depending on her clinical course, we may need to reassess that. I did order a Doppler ultrasound of the abdomen to assess the portal vein and hepatic veins, as well as to also remeasure her common bile duct for any sign of obstruction. Followup laboratories have been ordered for tomorrow along with a complete liver workup including autoimmune studies. I have ordered a Monospot and hepatitis C viral load to assess for any acute viral hepatitis conditions since the hepatitis A, B, and C studies are negative otherwise. I would continue to follow the PT and INR as well. If things improve and she is feeling well, her diet could be advanced and we could then complete the workup as an outpatient. On the other hand, if her laboratories continue to worsen regarding the hepatitis and there are signs of liver dysfunction with rising INR, then she would need consideration for liver biopsy and transfer to a tertiary center for transplant evaluation. However, at this point, I do not think this is necessary. If there are signs of biliary dilatation on the ultrasound or any other suggestive findings of biliary disease, then we could proceed with endoscopic retrograde cholangiopancreatography instead. This has all been discussed with the patient in detail, and she is comfortable with this plan. Thank you for the consultation. MD NITO Garcia/JOE / [id number] CAMPBELL
[2021-01-02 06:19] LABS: Baso%MD 1.1 %; Eos%MD 1.3 %; Hematocrit 34.5 % (37.0-47.0); Hemoglobin 11.6 g/dl (12.0-16.0); IG%MD 0.2 %; Lymph%MD 39.6 %; Mean Corpuscular HGB Conc 33.6 g/dl (31.0-35.0); Mean Corpuscular Hemoglobin 31.4 pg (27.0-33.0); Mean Corpuscular Volume 93.5 fL (80.0-98.0); Mean Platelet Volume 10.3 fL (9.4-12.3); Mono%MD 6.8 %; Platelet Count 237 X10*3/uL (160-400); Red Blood Count 3.69 X10*6/uL (4.20-5.50); Red Cell Distribution Width 13.1 % (11.0-16.0); White Blood Count 4.5 X10*3/uL (4.8-10.8)
[2021-01-02 06:48] LABS: Prothrombin Time 11.8 SEC (9.9-13.0)
[2021-01-02 07:00] LABS: Iron 213 mcg/dL (30-160); Percent Iron Saturation 81 % (15-50); Total Iron Binding Capacity 263 mcg/dL (228-428); Unsaturated Iron Binding 50 ug/dL
[2021-01-02 07:02] LABS: Alanine Aminotransferase 550 U/L (0-31); Albumin Level 3.1 g/dL (3.5-5.0); Alkaline Phosphatase 63 U/L (39-117); Anion Gap 10 (12-20); Aspartate Amino Transferase 307 U/L (5-31); Bilirubin Direct 0.5 mg/dL (0.0-0.5); Bilirubin Total 1.2 mg/dL (0.0-1.0); Blood Urea Nitrogen 5 mg/dL (9-16); Carbon Dioxide 23 mmol/L (22-29); Chloride 111 mmol/L (96-108); Creatinine Clr Calc Pharmacy 101.7; Estimated Glomerular Filt Rate > 60; Glucose Random 106 mg/dL (60-115); Potassium 4.2 mmol/L (3.3-5.1); Sodium 140 mmol/L (135-145); Total Protein 4.9 g/dL (6.5-8.0)
[2021-01-02 07:21] LABS: Ferritin 134 ng/mL (10-250)
[2021-01-02 07:33] VITALS: BP 107/57; PULSE 58; RESP 18; TEMP 36.3; O2SAT 97
[2021-01-02] MEDS: 0.9 % Sodium Chloride Flush 3 ML SYRINGE IVFLUSH (09:45)
[2021-01-02 09:50] LABS: Eosinophils Absolute Manual 0.1 X10*3/uL (0.0-0.4); Eosinophils Percent Manual 2 % (0-4); Lymphocytes Absolute Manual 1.8 X10*3/uL (1.2-4.9); Lymphocytes Percent Manual 41 % (20-40); Monocytes Absolute Manual 0.2 X10*3/uL (0.1-1.2); Monocytes Percent Manual 4 % (2-11); Neutrophils Percent Manual 53 % (45-73)
[2021-01-02 09:51] LABS: Platelet Estimate NORMAL (NORMAL); Platelet Morphology Comment NORMAL; RBC Morphology NORMAL
[2021-01-02 09:59] LABS: Band Neutrophils Percent 0 % (3-5); Neutrophils Absolute Manual 2.4 X10*3/uL (2.0-8.3)
[2021-01-02 11:48] VITALS: BP 109/73; PULSE 60; RESP 18; TEMP 36.4; O2SAT 98
--- NOTE | 2021-01-02 12:00 | PM.EVENT ---
Event Note Date of Service: 01/02/21 Event Note: Doing a lot better. Abdominal pain has resolved. Tolerating a full liquid diet without nausea or vomiting. LFTs show significant improvement. Hep C PCR and monospot test are pending. This is her 2nd episode of abdominal pain since cholecystectomy 18 yrs ago - 1st episode was in 2012. IMAGING STUDIES: DUPLEX US: *? Innumerable hepatic cysts redemonstrated. *? Otherwise unremarkable sonographic appearance of the hepatic parenchyma *? No significant biliary dilatation. *? Unremarkable Doppler sonographic evaluation of the hepatic arterial and venous structures. No change in the size of CBD on repeat abdominal US today RECOMMENDATIONS: 1. OK to DC home today. 2. I will place orders for repeat LFTs on 01/04/21 3. Pt will contact Dr Nix next week for additional plans
[2021-01-02 13:10] LABS: Monotest Negative (Negative)
[2021-01-04 12:15] LABS: Alpha 1 Anti-trypsin 117 mg/dL (83-199)
[2021-01-05 06:10] LABS: Anti Nuclear Antibody Screen NEGATIVE (NEGATIVE)
[2021-01-05 08:52] LABS: HCV Log PCR <1.18 NOT DETECTED Log IU/mL (NOT DETECTED); HepC Viral Load <15 NOT DETECTED IU/mL (NOT DETECTED)
[2021-01-05 12:06] LABS: Mitochondrial Antibodies NEGATIVE (NEGATIVE)
[2021-01-05 23:51] LABS: Smooth Muscle Antibody <20 U (<20)
== END 2021-01-02 14:16 | disposition home or self-care (01) | DRG 392 ==
LOC: HO.ED 09:17 → HO.EDOVER 12:36 → HO.S3 01-02 00:47
PROVIDERS: Internal Medicine; Admitting Provider Physician Assistant Medical; Emergency Provider Emergency Medicine; PCP Family Medicine; Visit Provider Internal Medicine
DX: R10.9 Unspecified abdominal pain (principal); K76.89 Other specified diseases of liver; Z20.822 Contact with and (suspected) exposure to COVID-19; Z91.040 Latex allergy status; Z79.1 Long term (current) use of non-steroidal anti-inflammatories (NSAID); Z79.899 Other long term (current) drug therapy
CPT/HCPCS: 36415; 74181; 76705; 80048; 80076; 80143; 80307; 81001; 82103; 82728; 83540; 83690; 83735; 85007; 85025; 85027; 85610; 86038; 86039; 86255; 86256; 86308; 86704; 86706; 86709; 86803; 87340; 87522; 87635; 93975; 99218; 99285; J1200; J1650; J2060; J2270

== ENCOUNTER 2021-01-05 06:44 | Outpatient (REF) | payer OTHER, SELFPAY ==
[2021-01-05 07:31] LABS: Hematocrit 40.6 % (37.0-47.0); Hemoglobin 13.5 g/dl (12.0-16.0); Mean Corpuscular HGB Conc 33.3 g/dl (31.0-35.0); Mean Corpuscular Hemoglobin 30.3 pg (27.0-33.0); Mean Corpuscular Volume 91.2 fL (80.0-98.0); Mean Platelet Volume 10.5 fL (9.4-12.3); Platelet Count 302 X10*3/uL (160-400); Red Blood Count 4.45 X10*6/uL (4.20-5.50); Red Cell Distribution Width 12.6 % (11.0-16.0); White Blood Count 5.5 X10*3/uL (4.8-10.8)
[2021-01-05 07:48] LABS: Alanine Aminotransferase 286 U/L (0-31); Albumin Level 4.2 g/dL (3.5-5.0); Alkaline Phosphatase 67 U/L (39-117); Aspartate Amino Transferase 72 U/L (5-31); Bilirubin Direct 0.2 mg/dL (0.0-0.5); Bilirubin Total 0.3 mg/dL (0.0-1.0); Gamma Glutamyl Transpeptidase 100 U/L (7-33); Total Protein 6.7 g/dL (6.5-8.0)
[2021-01-05 08:13] LABS: Vitamin B12 300 pg/mL (200-900)
== END 2021-01-05 06:45 | disposition home or self-care (01) ==
LOC: HO.LAB 06:44
PROVIDERS: Internal Medicine Gastroenterology; PCP Family Medicine; Visit Provider Internal Medicine
DX: R79.89 Other specified abnormal findings of blood chemistry (principal)
CPT/HCPCS: 36415; 80076; 82607; 82977; 85027

== ENCOUNTER 2021-01-25 10:39 | Outpatient (REF) | payer OTHER, SELFPAY ==
[2021-01-25 11:47] LABS: Alanine Aminotransferase 15 U/L (0-31); Albumin Level 4.1 g/dL (3.5-5.0); Alkaline Phosphatase 47 U/L (39-117); Aspartate Amino Transferase 16 U/L (5-31); Bilirubin Direct 0.3 mg/dL (0.0-0.5); Bilirubin Total 0.8 mg/dL (0.0-1.0); Total Protein 6.5 g/dL (6.5-8.0)
== END 2021-01-25 10:40 | disposition home or self-care (01) ==
LOC: HO.LAB 10:39
PROVIDERS: PCP Family Medicine; Visit Provider Internal Medicine
DX: R79.89 Other specified abnormal findings of blood chemistry (principal)
CPT/HCPCS: 36415; 80076

== ENCOUNTER 2021-07-20 15:32 | Outpatient (REF) | payer OTHER, SELFPAY ==
--- NOTE | ~2021-07-20 | MM_ITS ---
EXAMINATION: MM SCREENING DIGITAL BREAST TOMOSYNTHESIS, BILATERAL CLINICAL INFORMATION: Screening. Asymptomatic. The lifetime risk of breast cancer based on the Tyrer-Cuzick Model is 6.6%. COMPARISON: Mammography: June 12, 2020 and studies dating back to April 19, 2018 TECHNIQUE: Digital breast tomosynthesis is performed in both the craniocaudal and mediolateral oblique views along with computer-aided detection (CAD). Synthesized 2D images are generated from the tomosynthesis. FINDINGS: The breasts are extremely dense, which lowers the sensitivity of mammography (ACR BI-RADS breast composition Category d). There are no significant masses, abnormal calcifications, or other abnormalities. MM/MM tomosynthesis screening BI IMPRESSION: There are no significant changes from prior study. ASSESSMENT: BI-RADS 1: Negative RECOMMENDATION: Routine annual mammography screening. This patient's information was entered into a reminder system with a target due date for their next mammogram.
== END 2021-07-20 15:33 | disposition home or self-care (01) ==
LOC: HO.MAMMO 15:32
PROVIDERS: PCP Family Medicine; Visit Provider Family Medicine
DX: Z12.31 Encounter for screening mammogram for malignant neoplasm of breast (principal)
CPT/HCPCS: 77063; 77067

== ENCOUNTER 2021-08-20 11:52 | Outpatient (REF) | payer OTHER, SELFPAY ==
[2021-08-20 12:43] VITALS: BMI 25.8
[2021-08-20 12:46] VITALS: BMI 25.8
--- NOTE | 2021-08-23 16:16 | W.PM.OPN ---
Operative Note Operative Note Date of Service: 08/20/21 Narrative: Preoperative diagnosis: Lipoma left arm Postoperative diagnosis: Same Procedure: Excision of lipoma left arm Surgeon: Dominik Tay MD [employer] Logger: No physician Anesthesia: Local Indications for procedure: 45-year-old female with enlarging soft tissue mass located just below the elbow in the left arm. On examination the lipoma measures approximately 2 cm in diameter. Patient has discomfort associated with this lipoma. Operative findings: Lipoma measuring approximately 2 cm in diameter Specimen: Lipoma left arm Estimated blood loss: Less than 2 cc Complications: None Procedure details: Patient was brought to the minor surgery suite placed in a supine position. The site of surgery was confirmed by the patient and informed consent confirmed. The skin was prepped with Betadine and draped in a sterile fashion. Local consisting of lidocaine 1% with epinephrine was then infiltrated over the lesion. A longitudinal incision was then made with a scalpel carried out through subcutaneous tissue. Lipoma was then dissected free from the surrounding subcutaneous tissue using sharp dissection. Lesion was passed off the table and sent to pathology for further examination. After assuring adequate hemostasis dermis was reapproximated using interrupted 3-0 Polysorb sutures. Skin was closed using a running subcuticular 4-0 Polysorb suture. Steri-Strips, 2 x 2 gauze and Tegaderm were then applied. The patient tolerated the procedure well. She was discharged to home in stable condition.
== END 2021-08-20 11:53 | disposition home or self-care (01) ==
LOC: HO.MS 11:52
PROVIDERS: PCP Family Medicine; Visit Provider Surgery
PROC: (CPT 25075; principal; 2021-08-20 12:00)
DX: D17.22 Benign lipomatous neoplasm of skin and subcutaneous tissue of left arm (principal)
CPT/HCPCS: 25075; 88304

== ENCOUNTER 2021-11-03 14:43 | Outpatient (REF) | payer OTHER, SELFPAY ==
[2021-11-03 15:12] LABS: MANUAL DIFF FLAG NO
[2021-11-03 15:35] LABS: Basophils Absolute Auto 0.1 X10*3/uL (0.0-0.2); Basophils Percent Auto 1.7 % (0-2); Eosinophils Absolute Auto 0.1 X10*3/uL (0.0-0.4); Eosinophils Percent Auto 1.3 % (0-4); Imm Gran Abs Auto 0.02 X10*3/uL (0.00-0.03); Imm Gran Pct Auto 0.3 % (0.0-0.4); Lymphocytes Percent Auto 34.4 % (20-40); Mean Corpuscular HGB Conc 33.3 g/dl (31.0-35.0); Mean Corpuscular Hemoglobin 30.7 pg (27.0-33.0); Mean Corpuscular Volume 92.2 fL (80.0-98.0); Mean Platelet Volume 10.9 fL (9.4-12.3); Monocytes Absolute Auto 0.4 X10*3/uL (0.1-1.2); Monocytes Percent Auto 7.1 % (2-11); Neutrophils Absolute Auto 3.3 x10*3/uL (2.0-8.3); Neutrophils Percent Auto 55.2 % (45-73); Platelet Count 267 X10*3/uL (160-400); Red Blood Count 4.23 X10*6/uL (4.20-5.50); Red Cell Distribution Width 13.2 % (11.0-16.0); White Blood Count 5.9 X10*3/uL (4.8-10.8)
[2021-11-03 16:04] LABS: Alanine Aminotransferase 18 U/L (0-31); Albumin Level 4.1 g/dL (3.5-5.0); Alkaline Phosphatase 49 U/L (39-117); Amylase 51 U/L (28-100); Anion Gap 13 (12-20); Aspartate Amino Transferase 20 U/L (5-31); Bilirubin Direct 0.2 mg/dL (0.0-0.5); Bilirubin Total 0.6 mg/dL (0.0-1.0); Blood Urea Nitrogen 14 mg/dL (9-16); Calcium 8.6 mg/dL (8.4-10.2); Carbon Dioxide 24 mmol/L (22-29); Chloride 105 mmol/L (96-108); Estimated Glomerular Filt Rate > 60; Glucose Random 94 mg/dL (60-115); Lipase 22 U/L (8-78); Potassium 3.9 mmol/L (3.3-5.1); Sodium 138 mmol/L (135-145); Total Protein 6.5 g/dL (6.5-8.0)
== END 2021-11-03 14:44 | disposition home or self-care (01) ==
LOC: HO.LAB 14:43
PROVIDERS: PCP Internal Medicine Medical Oncology; Visit Provider Internal Medicine
DX: R10.84 Generalized abdominal pain (principal); R19.7 Diarrhea, unspecified; R11.0 Nausea
CPT/HCPCS: 36415; 80048; 80076; 82150; 83690; 85025

== ENCOUNTER 2022-04-18 15:00 | Outpatient (RCR) | payer OTHER, SELFPAY | END 2022-05-09 09:53 | disposition home or self-care (01) | LOC: HO.OT 15:00 | PROVIDERS: PCP Family Medicine; Visit Provider Family Medicine | DX: M77.11 Lateral epicondylitis, right elbow (principal) | CPT/HCPCS: 97035; 97110; 97140; 97166 ==

== ENCOUNTER 2022-05-26 10:36 | Outpatient (REF) | payer OTHER, SELFPAY ==
--- NOTE | ~2022-05-26 | MR_ITS ---
MR THORACIC SPINE WITHOUT CONTRAST CLINICAL INFORMATION: Wedge compression fracture of thoracic vertebra. COMPARISON: Chest CT 11/03/2016. TECHNIQUE: MRI of the thoracic spine was obtained using routine sequences without contrast. FINDINGS: Mild chronic upper endplate height loss at T12 with an associated chronic upper endplate Schmorl's node is stable when compared to a chest CT dated back to 11/03/2016. There is no bone marrow edema within the thoracic spine to suggest an acute fracture. The remaining thoracic vertebral bodies are normal in height. Disc volumes are maintained. Bone marrow signal is homogenous and normal. Conus terminates at the L1 level. Mild rightward convex scoliotic curvature of the thoracic spine. Known innumerable cysts partially imaged throughout the liver, discussed in detail on previous abdominal MRI studies. Known bilateral adrenal adenomas also better described in recent abdominal MR imaging. At T3-T4, a small left paracentral disc protrusion mildly indents the left ventral thecal sac. At T4-T5 and T5-T6, small right paracentral disc protrusions mildly indent the right ventral thecal sac. At T6-T7 and T7-T8, a small left paracentral disc protrusions mildly indent the ventral thecal sac. At T10-T11, there is a right paracentral/right lateral disc protrusion that results in mild to moderate right-sided foraminal encroachment. There is no severe central canal stenosis and there is no severe foraminal stenosis within the thoracic spine. MR/MR thoracic spine wo con IMPRESSION: - Mild chronic upper endplate height loss at T12 with an associated chronic upper endplate Schmorl's node is stable when compared to a chest CT dated back to 11/03/2016. There is no bone marrow edema within the thoracic spine to suggest an acute fracture. - Small disc protrusions at multiple thoracic levels as discussed in detail above. There is no severe central canal stenosis and there is no severe foraminal stenosis within the thoracic spine. - Known innumerable cysts partially imaged throughout the liver, discussed in detail on previous abdominal MRI studies. Known bilateral adrenal adenomas also better described in recent abdominal MR imaging.
== END 2022-05-26 10:37 | disposition home or self-care (01) ==
LOC: HO.MRI 10:36
PROVIDERS: PCP Family Medicine; Visit Provider Anesthesiology
DX: S22.000A Wedge compression fracture of unspecified thoracic vertebra, initial encounter for closed fracture (principal)
CPT/HCPCS: 72146

== ENCOUNTER → 2022-05-27 14:06 | Outpatient (BNVA) | payer OTHER, SELFPAY | PROVIDERS: PCP Family Medicine; Visit Provider Anesthesiology | DX: Z13.89 Encounter for screening for other disorder (principal) ==

== ENCOUNTER → 2022-05-31 14:10 | Outpatient (BNVA) | payer OTHER, SELFPAY | PROVIDERS: PCP Family Medicine; Visit Provider Anesthesiology | DX: M47.814 Spondylosis without myelopathy or radiculopathy, thoracic region (principal); M51.34 Other intervertebral disc degeneration, thoracic region; K76.89 Other specified diseases of liver; D35.00 Benign neoplasm of unspecified adrenal gland | CPT/HCPCS: 64490; 64491; J3301 ==

== ENCOUNTER 2022-05-31 15:45 | Outpatient (REF) | payer OTHER, SELFPAY ==
--- NOTE | ~2022-05-31 | FL_ITS ---
EXAMINATION: XR FLUOROSCOPY WITH IMAGES CLINICAL INFORMATION: Spondylosis, thoracic spine COMPARISON: MR thoracic spine 05/26/2022 TECHNIQUE: Fluoroscopy Supervised By: Dr. Baron Oshea. Fluoroscopy Time: 0.4 minutes. Cumulative Dose: 6.35 mGy. DAP: 1.73 Gycm2. Images: 6. FINDINGS: There are spinal needles overlying the mid to lower dorsal spine costal vertebral junction at 3 levels on each side. There is contrast in the paraspinal soft tissues. No visible vascular communication. FL/FL guidance in treatment room IMPRESSION: Fluoroscopy for pain management procedures.
== END 2022-05-31 15:46 | disposition home or self-care (01) ==
LOC: HO.XRAY 15:45
PROVIDERS: Visit Provider Anesthesiology
DX: Z13.89 Encounter for screening for other disorder (principal)

== ENCOUNTER 2022-07-26 15:26 | Outpatient (REF) | payer OTHER, SELFPAY ==
--- NOTE | ~2022-07-26 | MM_ITS ---
EXAMINATION: MM SCREENING DIGITAL BREAST TOMOSYNTHESIS, BILATERAL CLINICAL INFORMATION: Screening. Asymptomatic. The lifetime risk of breast cancer based on the Tyrer-Cuzick Model is 8%. COMPARISON: Mammography: 07/24/2021, 06/02/2020, 04/25/2019 TECHNIQUE: Digital breast tomosynthesis is performed in both the craniocaudal and mediolateral oblique views along with computer-aided detection (CAD). Synthesized 2D images are generated from the tomosynthesis. FINDINGS: The breasts are heterogeneously dense, which may obscure small masses (ACR BI-RADS breast composition Category c). There are no significant masses, abnormal calcifications, or other abnormalities. Parenchymal pattern is similar to prior studies. There is no developing density or architectural abnormality. The axilla and skin contours are unremarkable. No significant changes. MM/MM tomosynthesis screening BI IMPRESSION: No mammographic evidence of malignancy. ASSESSMENT: BI-RADS 1: Negative RECOMMENDATION: Routine annual mammography screening. This patient's information was entered into a reminder system with a target due date for their next mammogram.
== END 2022-07-26 15:27 | disposition home or self-care (01) ==
LOC: HO.MAMMO 15:26
PROVIDERS: PCP Family Medicine; Visit Provider Family Medicine
DX: Z12.31 Encounter for screening mammogram for malignant neoplasm of breast (principal)
CPT/HCPCS: 77063; 77067

== ENCOUNTER 2022-09-30 10:53 | Day surgery (SDC) | payer OTHER, SELFPAY ==
--- NOTE | ~2022-09-30 | FL_ITS ---
EXAMINATION: XR FLUOROSCOPY WITH IMAGES CLINICAL INFORMATION: Bilateral T6, T7, T8 MBB. COMPARISON: None available. TECHNIQUE: Fluoroscopy Supervised By: Fluoroscopy Time: 0.5 minutes. Cumulative Dose: 8.91 mGy. DAP: 146 Gycm2. Images: 6. FINDINGS: Images demonstrate needle placement and contrast injection adjacent to the bilateral thoracic spine. FL/FL guidance in OR IMPRESSION: Fluoroscopy guidance for pain management procedure.
--- NOTE | 2022-09-30 11:52 | MHC.SHP ---
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 Details of Present Illness: As above Relevant Family History (Specify if Yes): No Relevant Social History: None Present Medications: None Medical History: No relevant PMH History of Previous Operations: No relevant previous surgery Allergies: Allergies Allergy/AdvReac Type Severity Reaction Status Date / Time latex [Latex] Allergy Unknown SWELLING, Unverified 10/31/19 17:25 SHORT OF BREATH medroxyprogesterone Allergy Unknown Unknown Verified 01/01/21 07:38 [Depo-Provera] Review of Systems Sugical H&P ROS: Negative: Constitution, Cardiovascular, Respiratory, Neurological, Psychiatric, Hem-Onc, Allergic/Immunologic, Gastrointestinal, Genitourinary, Musculoskeletal, Integumentary, Endocrine and Eyes/Ears/Nose/Throat Exam Surgical H&P Exam: Normal: HEENT, Normal: Heart, Normal: Lungs, Normal: Extremities, Normal: Abdomen, Normal: Skin and Normal: Neurological Plan Diagnosis/Plan: Unchanged I have reviewed the history and physical and performed a pertinent physical examination on my patient. No changes have occurred unless specified. Time Spent With Patient Time: Total time managing care of this patient today ____ minutes.
--- NOTE | 2022-09-30 11:53 | P.OP_ITS ---
Operative Note Operative Note Date of Service: 09/30/22 Narrative: Therapeutic medial branch block T6-T7-T8 bilateral.? Informed consent was explained to the patient. All questions were explained and? answered.? The patient was taken inside the operating room where she was p ositioned prone on the operating table. Time-out was performed delineating correct site, side, the nature of the procedure, patient's allergy, . All operating room staff was participating in OR time-out procedure. The lower back was prepped with ChloraPrep and draped with sterile towels.? C- arm was brought over the operating field and sq picture of T6-T7-T8? vertebrae were delineated on the screen.? Point of interest were delineated as the most superior-lateral points on the each transverse process bilaterally of the T6- T7- T8 vertebrae. The projection of the point of interest to the skin were injected with the small amount of local anesthetic lidocaine 2% 1-1.5 cc.? After that 22 gauge 3.5 inch spinal needle was driven sequentially to the points of interest in tunnel vision fashion. After needle gently contacted the bone at the point of interests the needle was injected with small amount of the contrast.? The injection of the contrast did not demonstrate any intravascular or intrathecal spread of the contrast.? After that injection of the? ropivacaine 0.5%-1cc mixed with kenalog was performed at each needle location. total dose of kenalog was 80 mg.? Upon completion of the injections? needle was? removed and sterile Band-Aids were applied.? The patient tolerated procedure very well.
[2022-09-30 11:57] VITALS: BMI 26.6
[2022-09-30 12:33] VITALS: BP 136/81; PULSE 62; RESP 20; TEMP 36.8; O2SAT 99
--- NOTE | 2022-09-30 12:37 | PM.OP ---
Brief Operative Note Date of Service: 09/30/22 Pre-op diagnosis: Spondylosis thoracic spine Post-op diagnosis: same Procedure: Thoracic 6, thoracic 7 thoracic 8 medial branch block therapeutic bilateral. Surgeon: Baron Oshea MD Anesthesia: local Was an Wide Piece Goods Inspector used for this Procedure?: No Estimated blood loss (mL): 1 Condition: stable Disposition: PACU
[2022-09-30 12:43] VITALS: BP 111/72; PULSE 63; RESP 20; TEMP 36.8; O2SAT 98
== END 2022-09-30 12:50 | disposition home or self-care (01) ==
PROVIDERS: PCP Family Medicine; Visit Provider Anesthesiology
PROC: (CPT 64490; principal; 2022-09-30 12:20)
DX: M47.814 Spondylosis without myelopathy or radiculopathy, thoracic region (principal); M51.34 Other intervertebral disc degeneration, thoracic region; K76.89 Other specified diseases of liver; D35.00 Benign neoplasm of unspecified adrenal gland; Z91.040 Latex allergy status; Z88.8 Allergy status to other drugs, medicaments and biological substances; Z98.890 Other specified postprocedural states
CPT/HCPCS: 64490; 64491; J3301

== ENCOUNTER → 2022-09-30 10:53 | Outpatient (BNV) | payer OTHER, SELFPAY | PROVIDERS: PCP Family Medicine; Visit Provider Anesthesiology | DX: M47.814 Spondylosis without myelopathy or radiculopathy, thoracic region (principal) | CPT/HCPCS: 64490; 64491 ==

== ENCOUNTER 2023-01-02 16:00 | Outpatient (RCR) | payer OTHER, SELFPAY ==
--- NOTE | 2022-11-02 17:28 | MHC.PT.EP ---
[facility] [place] Office [place] Office [place] Office [address] Daniella Guzman [address] [phone] F: [phone] F: [phone] F: [phone] F: [phone] Physical Therapy Plan of Care Date of Evaluation: 11/02/22 Date of Surgery: Diagnosis: spondylosis without myelopathy or radiculopathy, thoracic region (MD Dx) other intervertebral disc gegeneration thoracic region (MD Dx) Disc protrusions T3-T4, T4-T5, T5-T6. T6-T7. T7-T8, T10-T11 as seen on MRI (PT Dx) Assessment: Patient is a pleasant 46 y.o. 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 Baron Oshea MD, with Dx of spondylosis without myelopathy or radiculopathy, thoracic region and other intervertebral disc gegeneration thoracic region. PT diagnosis is Disc protrusions T3-T4, T4-T5, T5-T6. T6-T7. T7-T8, T10-T11 as seen on MRI. Patient impairments include pain, poor postures, limited ROM, weakness in postural muscles. Patient current functional limitations are gym work outs, running, prolonged sitting, prolonged postures. Patient will benefit from skilled PT to address aforementioned impairments and functional limitations to meet established goals. Frequency and Duration: The patient will be seen 2x/week for 4 weeks Short Term Goals: 2 weeks Patient demonstrates consistency and independence with HEP to self manage symptoms. Penitentiary Goals: 4 weeks Patient presents with increased lower trap strength 4/5 to improve tolerance for prolonged postures. Patient presents with increased thoracic rotation, equal bilaterally without pain to improve mobility for home work outs (low impact). Treatment Plan: Modalities to reduce pain, spasms and effusion. Manual therapy to restore motion and function. Therapeutic exercise to improve strength and flexibility. Neuromuscular re-education for posture and balance. Therapeutic activities to return to functional activities of daily living. Electronically signed by: Tia Ocasio, PT, DPT Please sign and return to therapist. Thank you for your referral.
--- NOTE | 2023-02-08 13:41 | MHC.PT.DC ---
[facility] [place] Office [place] [facility] [place] [facility] [address] Daniella Guzman [address] [phone] F: [phone] F: [phone] F: [phone] F: [phone] Physical Therapy Discharge Report Diagnosis: spondylosis without myelopathy or radiculopathy, thoracic region (MD Dx) other intervertebral disc gegeneration thoracic region (MD Dx) Disc protrusions T3-T4, T4-T5, T5-T6. T6-T7. T7-T8, T10-T11 as seen on MRI (PT Dx) Date of Surgery: Date of Evaluation: 11/02/22 Date of Discharge: 02/08/23 Treatments to Date: 17 Cancellations to Date: No Shows to Date: Discharge Status: Improved Function Independent with HEP Discharge Summary: Elisa completed course of PT. During her last PT session the assesment reads, Pt independent w/HEP and will cont w/Gym routine w/lt wts. Electronically signed by: Tia Ocasio, PT, DPT Please sign and return to therapist. Thank you for your referral.
== END 2023-02-08 13:41 | disposition home or self-care (01) ==
LOC: HO.PT 16:00
PROVIDERS: PCP Family Medicine; Visit Provider Anesthesiology
DX: M47.814 Spondylosis without myelopathy or radiculopathy, thoracic region (principal); M51.34 Other intervertebral disc degeneration, thoracic region
CPT/HCPCS: 97110; 97140; 97161; 97530

== ENCOUNTER 2024-02-20 13:56 | Outpatient (AMB) | payer OTHER, SELFPAY ==
--- NOTE | 2024-02-20 13:33 | MHC.OFFVIS ---
Intake Visit Reasons: PROCEDURE DISCUSSION Allergies latex [Latex] Allergy (Unknown, Unverified 10/31/19 17:25) SWELLING, SHORT OF BREATH medroxyprogesterone [Depo-Provera] Allergy (Unknown, Verified 01/01/21 07:38) Unknown HPI Comments Details: Elisa is back in my office today requesting the repeat of the previously done procedure. In the past 05/31/2022 I performed T6-T7 T8 bilateral medial branch block and it was very effective to control her pain for more than 6 months. After that the pain started to come back however it remain mild. Recently she started to experience more severe pain. She came to me today with a request to repeat the procedure as above. PRP injections, sprint PNS, RFA were explained to the patient. RFA of the thoracic spine is not covered by insurance. Sprint PNS unfortunately patient can not commit time off of work to get the procedure done. Therefore we decided that I will schedule her for therapeutic T6-T7 T8 bilateral medial branch block as it was performed in the past. 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 She reported that she had in the past a compression fracture of the presumably T11 or T12 vertebra, she recently participated in sports activity which resulted in appearance of the pain as above. she reported that she had a history of mild discomfort in the central back but nothing like pain she experienced recently. She requested me to send her for some diagnostic studies and urgent MRI was ordered because patient thought that she developed compression fracture of the same vertebra. The order was made and MRI dictation is as below. Her past medical history significant for history of indolent small liver cysts and adenomas in the adrenal glands, she is generally very healthy and participates in sports activities. Past surgical h/o adenoidectomy, histectomy with bladder sling as well as cholecystectomy and karen fundoplication. H/o tennis elbow physical therapy and physical therapy for a compression fracture. She denies smoking cigarettes drinking alcohol using recreational drugs, she admits drinking diet soda 2 bottles a day. She denies recent physical therapy to treat this acute pain and she denies any injections in the distant or recent past [facility] Medical History IBS (irritable bowel syndrome) Surgical History History of Thad fundoplication Hx of cholecystectomy Social History Alcohol intake: unknown Patient Tobacco Use Status: Never used Tobacco service: No Current occupational status: employed Review of Systems Const All systems reviewed & are unremarkable except as noted in HPI and below ENT Reports Normal hearing present Neuro Reports Normal hearing present, Denies Abnormal speech present, Denies confusion and Denies Sensory deficit (Neuro) Psych Denies confusion Physical Exam Const General: no acute distress; No confusion Orientation/consciousness: patient oriented x3 and No confusion Eyes General: appearance normal, both eyes and all related structures Pupils: Equal, round and reactive pupils present EOM: EOMs intact bilaterally Neck Neck: Yes full ROM Chest Chest palpation & inspection: normal inspection of the chest Resp Effort & Inspection: normal respiratory effort, able to speak in complete sentences and normal respiratory pattern Cardio Jugular venous distension: no JVD GI Inspection: Yes normal to inspection Back/Spine/Pelvis Other: Severe tenderness to palpation in the projection of approximately T7-T8 thoracic vertebra as. No radiation of the pain. No exacerbation of the pain with breath. Valsalva maneuver does not aggravate the pain. Neuro General: patient oriented x3, gait normal and No confusion Cranial nerves: Yes CN's II-XII intact bilaterally, Yes Equal, round and reactive pupils present, Yes Normal hearing present and Yes Ability to bilaterally elevate shoulders present Speech: No Abnormal speech present Gait exam (Neuro): Normal gait present Motor exam (neuro): 5/5 motor strength present throughout Sensory Exam: No Sensory deficit (Neuro) Extrem General: No pedal edema Psych Speech and movement: Normal speech and movement present Affect: normal affect Attitude: cooperative Thought process: Normal thought process present Thought content: Normal thought content present Insight: Good insight present (Psych) Judgement: Good judgement present (Psych) Assessment & Plan Assessment & Plan (1) Spondylosis of thoracic region without myelopathy or radiculopathy: Code(s): M47.814 - Spondylosis without myelopathy or radiculopathy, thoracic region Category: Medical (2) Degeneration, intervertebral disc, thoracic: Code(s): M51.34 - Other intervertebral disc degeneration, thoracic region Category: Medical (3) Liver cyst: Code(s): K76.89 - Other specified diseases of liver Category: Medical (4) Adrenal adenoma: Code(s): D35.00 - Benign neoplasm of unspecified adrenal gland Category: Medical Plan I will schedule her for repeat T6-T7 -T8 bilateral therapeutic medial branch block. I will see her after the procedure for further evaluation. Coding Level of Care Code Est Pt Level 3 (62112) Diagnoses Spondylosis of thoracic region without myelopathy or radiculopathy M47.814 Degeneration, intervertebral disc, thoracic M51.34 Liver cyst K76.89 Adrenal adenoma D35.00
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
--- OUTSIDE RECORDS SUMMARY | 2024-02-20 17:06 | XMS_ITS | Continuity of Care Document ---
Author Organization [facility] Address [address] [place] [address] [address] [place], [place] Phone [phone] Care Team Providers Care Mechanic Insulator Name Role Phone Tory Gomez MD Care Team Information Medical Laboratory Technologist U navailable Social History Type Date Description Comments Sex Unknown
--- OUTSIDE RECORDS SUMMARY | 2024-02-20 17:06 | XMS_ITS | Patient Health Record ---
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 Name Role Phone Jason cota Primary Care Provider Odell Mederos [phone] ALLERGIES Allergen (clinical drug ingredient) Drug/Non Drug Allergy documented on EMR Reaction Allergy Type Onset Date Status Latex Gloves Unknown Drug Allergy Acti ve REASON FOR REFERRAL No Information MEDICATIONS Medication SIG (Take, Route, Frequency, Duration) Notes Start Date End Date Status Hyoscyamine Sulfate 0.125 MG 1 or 2 Subl ingual Every 6 hours as needed for abdominal cramps/discomfort/bloat ing for 30 days 10/04/2022 Active Cholestyramine 4 GM/DOSE 1 scoop Orally Once or Twice a day in a glass of water or juice for 30 day(s) Active Multivitamin Active Dicyclomine HCl 10 MG TAKE 1 TO 2 CAPSUL ES BY MOUTH 4 TIMES DAILY NEEDED FOR ABDOMINAL CRAMPS/DISCOMFORT for 5 Active Ondansetron 4 MG 1 tablet on the tong ue and allow to dissolve Orally Every 4 to 6 hours as needed for nausea for 30 day(s) 11/02/2021 Active Tylenol PRN Active Ibuprofen PRN Active Flonase Allergy Relief 50 MCG/ACT 1 spray in each nostril Nasally Once a day for 30 day(s) Unknown Claritin 10 MG 1 tablet Orally Once a day for 30 day(s) Unknown IMMUNIZATIONS Vaccine Route Administration Date Status Comme nts Influenza Unknown 11/30/2017 Administered Influenza Unknown 11/13/2018 Administered Influenza Unknown 11/27/2019 Administered SOCIAL HISTORY Tobacco Use: Social History Observation Description Date Details (start date - stop date) Former Smoker NA - NA Sex Assigned At : Social History Observation Description Sex Assigned At Unknown Tobacco Use/Smoking Question Answer Notes Patient is a former smoker How long has it been since you last smoked? 5-10 years PROBLEMS Problem Type ICD Code Onset Dates Problem Status W/U Status Risk SNOMED Code Notes Problem Abdominal bloating (R14.0) Active confirmed 960783653 Problem Diarrhea (R19.7) Active confirmed Diarr hea (10835312) Problem Irritable bowel syndrome with diarrhea (K58.0) Active confirmed 383199866 Problem Nausea (R11.0) Active confirmed Nausea (016034973) Problem Family history of colonic polyps (Z83.71) Active confirmed 643370179 Problem Abdominal pain, epigastric (R10.13) Active confirmed 01639377 Problem Elevated liver function tests (R79.89) Active confirmed 597837170 Problem Gastroesophageal reflux disease without esophagitis (K21.9) Active confirmed 842503770 Problem Hiatal hernia (K44.9) Active confirmed 25135261 Problem Abdominal pain, right upper quadrant (R10.11) Active confirmed 795556003 Problem Diarrhea, unspecified type (R19.7) Active confirmed 82521289 Problem Vomiting (R11.10) Active confirmed Vomi ting (667988552) Problem Irritable bowel syndrome with both constipation and diarrhea (K58.2) Active confirmed 26697012 Problem Family history of inflammatory bowel disease (Z83.79) Active confirmed [id number] Problem Abdominal pain, acute, generalized (R10.84) Active confirmed Generalized abdominal pain (108285098) PLAN OF TREATMENT Pending Test Test Name Order Date Esophageal Motility study 05/31/2016 CHEM 7 PROFILE 11/02/2021 CHEM 7 PROFILE 01/25/2021 LIVER PROFILE 01/06/2021 LIVER PROFILE 11/02/2021 LIVER PROFILE 01/25/2021 AMYLASE 01/25/2021 LIPASE 01/25/2021 CBC w DIFF 01/25/2021 CBC w DIFF 11/02/2021 CLOSTRIDIUM DIFF TOXIN A&B (C DIFF) 10/15 URINALYSIS (UA) 06/09/2015 STOOL WBC 11/03/2017 GIARDIA AG, STOOL EIA 11/03/2017 OVA & PARASITES (O&P) 11/03/2017 CULTURE, STOOL 11/03/2017 24 HR pH PROBE 05/31/2016 STOOL WBC 11/02/2021 C DIFFICILE RFLX PCR 11/02/2021 GI PANEL 11/02/2021 Future Test Test Name Order Date UPPER GI ENDOSCOPY 12/06/2012 COLONOSCOPY 10/24/2018 Insurance Providers Payer Name Payer Address Payer Phone Subscriber Number Group Number Insured Name Patient Relationship to Insured Coverage Start Date Coverage End Date [facility] [address] [place] [id number] ANDREW MORROW Self - patient is the insured MEDICAL (GENERAL) HISTORY Medical History History ICD Code Denies LA,DM,CVA,Lung disease,renal dise ase EGD in 12/2012 with erosive esophagits, small HH; bx neg for [place]'s, H.pylori and neg for celiac disease Compression fracture of T11 after a fall --12/2013 EGD in August of 2015 revealed a small hiatal hernia, but no evidence of any esophagitis, gastritis, ulcer disease, Arrington's esophagus, nor H. pylori Normal esophageal motility s tudies in July of 2016--- a 24-hour pH probe was unable to be done as they were unable to pass the probe Normal colonoscopy, includin g biopsies in the terminal ileum and colon, in December 2018 Irritable bowel syndrome with predominan tly diarrhea Surgical History Surgery Date(Month/Year) Cholecystectomy Tubal ligation Adenoids/Tonsils D & C Uterine ablation Hysterectomy and bladder suspension 01/14 017 Hiatal hernia surgery in 12/2016-Dr. Kira Zamora cyst
== END 2024-02-20 14:08 | disposition home or self-care (01) ==
LOC: HO.PMCPRC 13:56
PROVIDERS: PCP Family Medicine; Visit Provider Anesthesiology
DX: M47.814 Spondylosis without myelopathy or radiculopathy, thoracic region (principal); M51.34 Other intervertebral disc degeneration, thoracic region; K76.89 Other specified diseases of liver; D35.00 Benign neoplasm of unspecified adrenal gland
CPT/HCPCS: 99213